=== PATIENT | male | born 1990 | race Two or more races ===

== ENCOUNTER 2025-02-16 13:07 | Outpatient (RCR) | payer MEDICAID, SELFPAY | END 2025-02-27 23:59 | disposition home or self-care (01) | LOC: CPTX 13:07 | PROVIDERS: PCP Student in an Organized Health Care Education/Training Program; Referring Provider Student in an Organized Health Care Education/Training Program; Visit Provider Student in an Organized Health Care Education/Training Program | DX: Z53.9 Procedure and treatment not carried out, unspecified reason (principal) ==

== ENCOUNTER 2025-03-24 14:30 | Outpatient (RCR) | payer MEDICAID, SELFPAY ==
--- NOTE | 2025-03-08 16:09 | PTNOTE_ITS ---
PT OP Initial Eval Patient Information Visit Reasons: BILATERAL KNEE,HIP AND SHOULDER PAIN Medical Diagnosis: Right Shoulder Pain; Right Hip Pain; Right Knee Pain Treatment Dx #1: Right UE Pain Treatment Dx #2: Right LE Pain Start of Care: 03/08/25 Date of Onset: 2 years ago Smoking Status Smoking Status: Never smoker Initial Assessment Subjective: Pt is a 34 y/o male reports of chronic right UE and LE pain (8/10) worsening. Pt has limitation with overhead motions, chores, walking, standing, balance, and performing recreational activities. Objective: Right Shoulder AROM: all motions are WFL with pain in all ranges Right Knee AROM: all motions are WFL with end range pain Right Hip AROM: all motions are WFL with end range pain Right UE MMTs: grossly 3+/5 Right LE MMTs: grossly 3+/5 Assessment: Pt demonstrate right UE and LE pain leading to difficulty with ADLs. Pt will attempt physical therapy if pain persist Pt will be refer back to provider for further consultation Short Term and Retirement Goals 1) Increase right shoulder MMTs grossly to 4-/5 in 6 wks to be able to perform overhead motions 2) Increase right LE MMTs grossly to 4-/5 in 6 wks to be able to walk more than 30 mins 3) Decrease UE and LE pain to 3/10 in 6 wks to be able to perform recreational activities 4) Indep with HEP Treatment Plan 1) Manual Therapy 2) Therapeutic Activities 3) Therapeutic Exercises 4) Modalities (ice, heat) 5) Balance Training 6) Gait Training Frequency and Duration: 2 x wk for 6 wks Certification Dates: 03/08/25 to 06/08/25 Procedure Charges OP PT Eval Mod Complex 30 minutes: Yes
--- NOTE | 2025-03-15 15:06 | PT.ODAYNRPT ---
PT Outpatient Daily Note OP Daily Note Outpatient Physical Therapy Treatment Date: 03/15/25 Visit Reasons: BILATERAL KNEE,HIP AND SHOULDER PAIN Subjective: Pt's right arm and legs continues to hurt. Pt further reports of back pain that causing sciatica. Pt spoke to provider and wants him to complete right side first prior to heading to the left side. Objective: Please see flow chart for list of ther ex performed Assessment: patient frequently needs confirmation from therapist to ensure exercise form. Pt tolerate all exercises instructed today Plan: Continue with PT Length of Time (minutes) of Treatment: 30 Minutes Procedure Charges Therapeutic Exercise 30 minutes: Yes
--- NOTE | 2025-03-17 16:28 | PT.ODAYNRPT ---
PT Outpatient Daily Note OP Daily Note Outpatient Physical Therapy Treatment Date: 03/17/25 Visit Reasons: BILATERAL KNEE,HIP AND SHOULDER PAIN Subjective: Pt reports pain in both legs and arms. Objective: Please see flow sheet for ther ex list. Assessment: Pt able to complete interventios assigned. Plan: Continue with pOC. Length of Time (minutes) of Treatment: 30 Minutes Procedure Charges Therapeutic Exercise 30 minutes: Yes
--- NOTE | 2025-03-22 15:41 | PT.ODAYNRPT ---
PT Outpatient Daily Note OP Daily Note Outpatient Physical Therapy Treatment Date: 03/22/25 Visit Reasons: BILATERAL KNEE,HIP AND SHOULDER PAIN Subjective: Pt reports his legs are hurting today more than usual. Pt mentioned he spends most of his time sitting in his electric wheelchair when at the senior living. Pt shared that he does not think he can walk much, said he needs to be in his chair. Objective: Please see flow sheet for ther ex list. Assessment: Pt demonstrates poor tolerance with closed chain interventions. Plan: Continue with pOC. Length of Time (minutes) of Treatment: 30 Minutes Procedure Charges Therapeutic Exercise 30 minutes: Yes
--- NOTE | 2025-03-24 16:15 | PT.ODAYNRPT ---
PT Outpatient Daily Note OP Daily Note Outpatient Physical Therapy Treatment Date: 03/24/25 Visit Reasons: BILATERAL KNEE,HIP AND SHOULDER PAIN Subjective: Pt reports today is a better day, less pain than last time he was here at PT. Objective: Please see flow sheet for ther ex list. Assessment: Pt demonstrates increase endurance with interventions assigned. Plan: Continue with pOC. Length of Time (minutes) of Treatment: 30 Minutes Procedure Charges Therapeutic Exercise 30 minutes: Yes
== END 2025-03-29 23:59 | disposition home or self-care (01) ==
LOC: CPTX 14:30
PROVIDERS: PCP Student in an Organized Health Care Education/Training Program; Referring Provider Student in an Organized Health Care Education/Training Program; Visit Provider Student in an Organized Health Care Education/Training Program
DX: M25.511 Pain in right shoulder (principal); M25.551 Pain in right hip; M25.561 Pain in right knee; G89.29 Other chronic pain
CPT/HCPCS: 97110; 97162

== ENCOUNTER 2025-04-28 14:30 | Outpatient (RCR) | payer MEDICAID, SELFPAY ==
--- NOTE | 2025-03-31 15:41 | PT.ODAYNRPT ---
PT Outpatient Daily Note OP Daily Note Outpatient Physical Therapy Treatment Date: 03/31/25 Visit Reasons: bilateral knee, hip and shoulder pain Subjective: Pt reports his legs and upper body are hurting today. Mentioned he has tears in shoulders and collar bones. Pt also shared that his condition requires surgery. Pt reported again that he sits in his electric wheel chair for ~15 hours a day, currently receiving accommodations for showers because he can not be on his feet for prolonged periods and avoids walking when at the nursing home because he does not want to loose his accommodations. Objective: Please see flow sheet for ther ex list. Assessment: Pt presents in clinic with B LE edema and redness. Pt encouraged to ambulate more and to try to stay off the w/c to help improve LE circulation and would help improving overall funciotn. Pt shared due to his current situation and staying at a nursing home he tries to avoid getting seeing ambulating for prolonged periods to not loose his accommodations. Pt instructed on interventions he can perform while sitting in his electric wheel chair and encouraged to ambulate when he can. Plan: Continue with POC. Length of Time (minutes) of Treatment: 30 Minutes Procedure Charges Therapeutic Exercise 30 minutes: Yes
--- NOTE | 2025-04-05 14:44 | PT.ODAYNRPT ---
PT Outpatient Daily Note OP Daily Note Outpatient Physical Therapy Treatment Date: 04/05/25 Visit Reasons: bilateral knee, hip and shoulder pain Subjective: Pt came in using electric scooter chair. Objective: Please see flow sheet for ther ex list. Assessment: Progressing closes chain interventions. pt encouraged to increase ambulation as tolerate for HEP to maximize rehab potential. Plan: Continue with POC. Length of Time (minutes) of Treatment: 30 Minutes Procedure Charges Therapeutic Exercise 30 minutes: Yes
--- NOTE | 2025-04-07 15:28 | PT.ODAYNRPT ---
PT Outpatient Daily Note OP Daily Note Outpatient Physical Therapy Treatment Date: 04/07/25 Visit Reasons: bilateral knee, hip and shoulder pain Subjective: Pt reports he feels good today, pt shared [facility] and when out running errands such as going to the library. Pt mentioned now that he is going to the library he can try walking more to get out of his chair, when he is in the [place] he avoid walking because he does not want to be seeing being able to walk and loose 30 minute shower privileges. Objective: Please see flow sheet for ther ex list. Assessment: Pt ambulating in clinic today, no AD decrease limp compared to previous session. Pt mentioned that he is mostly in his chair, this pt encouraged pt to get out of chair when possible to maximise rehab potential and work toward meeting rehab goals. Plan: Continue with pOC. Length of Time (minutes) of Treatment: 30 Minutes Procedure Charges Therapeutic Exercise 30 minutes: Yes
--- NOTE | 2025-04-15 16:35 | PT.ODAYNRPT ---
PT Outpatient Daily Note OP Daily Note Outpatient Physical Therapy Treatment Date: 04/15/25 Visit Reasons: bilateral knee, hip and shoulder pain Subjective: Pt reports he is doing a little better today. Objective: Please see flow sheet for ther ex list. Assessment: Working toward progressing interventions to focus on restoring strength and overall function. Pt encouraged to perform HEP and to ambulate when he can safely. Plan: Continue with pOC. Length of Time (minutes) of Treatment: 30 Minutes Procedure Charges Therapeutic Exercise 30 minutes: Yes
--- NOTE | 2025-04-26 15:59 | PT.ODAYNRPT ---
PT Outpatient Daily Note OP Daily Note Outpatient Physical Therapy Treatment Date: 04/26/25 Visit Reasons: bilateral knee, hip and shoulder pain Subjective: Pt will be seeing equipment application specialist tomorrow for his hips and knees. Pt continues to have back pain but has been able to walk short distance. Pt [facility]. Objective: Please see flow chart for list of ther ex performed Assessment: improvement with overall mobility and patient showed he's able to ambulate in therapy short distance. Pt further demonstrate improved overall endurance and require less rest breaks Plan: Continue with PT Length of Time (minutes) of Treatment: 30 Minutes Procedure Charges Therapeutic Exercise 30 minutes: Yes
--- NOTE | 2025-04-28 15:50 | PT.ODAYNRPT ---
PT Outpatient Daily Note OP Daily Note Outpatient Physical Therapy Treatment Date: 04/28/25 Visit Reasons: bilateral knee, hip and shoulder pain Subjective: Pt's been able to stand longer, however, continues to experience pain in the legs and arms. Pt mentioned he seen a surgeon in [place] and recommends hip MRI. According to patient surgeon is not too concern about his knees. Objective: Please see flow chart for list of ther ex performed Assessment: improved standing tolerance and able to complete more closed chain exercises with less rest break. Advance patient from TG squat to wall mini squat with good tolerance, however, able to complete 10 reps only Plan: Continue with PT Length of Time (minutes) of Treatment: 30 Minutes Procedure Charges Therapeutic Exercise 30 minutes: Yes
== END 2025-04-29 23:59 | disposition home or self-care (01) ==
LOC: CPTX 14:30
PROVIDERS: PCP Student in an Organized Health Care Education/Training Program; Referring Provider Student in an Organized Health Care Education/Training Program; Visit Provider Student in an Organized Health Care Education/Training Program
DX: M25.511 Pain in right shoulder (principal); M25.551 Pain in right hip; M25.561 Pain in right knee; R26.2 Difficulty in walking, not elsewhere classified; R26.89 Other abnormalities of gait and mobility; G89.29 Other chronic pain
CPT/HCPCS: 97110

== ENCOUNTER 2025-05-05 14:30 | Outpatient (RCR) | payer MEDICAID, SELFPAY ==
--- NOTE | 2025-05-05 15:23 | PT.ODS1RPT ---
PT OP Progress/Discharge Note Date of Service: 05/05/25 Progress Note/DC Note Progress Note/Discharge Note: DC Note Patient Information Visit Reasons: bilateral knee,hip shoulder pain Medical Diagnosis: Right Shoulder Pain; Right Hip Pain; Right Knee Pain Treatment Dx #1: Right UE Pain Treatment Dx #2: Right LE Pain Service Discharge Date: 05/05/25 Status Subjective: Pt's right leg and arm pain is about the same but has been moving better since starting physical therapy. Pt mentioned he's currently living [facility] a homeless [facility] where he is mostly in his power w/c. Since physical therapy Pt has been able to sit, stand, walk, and perform chores, and self care activities with less limitation. Pt wants to follow up with PCP for possibly more therapy on his left arm and leg. Pt has recently seen a surgeon which ordered hip MRI. Objective: Right Shoulder AROM: all motions are WNL Right Knee AROM: all motions are WNL Right Hip AROM: all motions are WNL Right UE MMTs: grossly 4-/5 Right LE MMTs: grossly 4-/5 Assessment: Pt demonstrate functional right UE and LE mobility/strength allowing her to resume ADLs with less limitation. Pt's overall pain has not change since starting physical therapy but overall mobility on the right side has improved. Pt will no longer benefit from physical therapy due to plateau towards goals. Pt was instructed on HEP last session and educated to continue exercises to maintain overall mobility. Pt performed all exercises safely, thank you for your referrals. Plan: D/C home with HEP and follow up with MD SALMERON Procedure Charges Therapeutic Exercise 30 minutes: Yes
== END 2025-05-30 23:59 | disposition home or self-care (01) ==
LOC: CPTX 14:30
PROVIDERS: PCP Student in an Organized Health Care Education/Training Program; Referring Provider Student in an Organized Health Care Education/Training Program; Visit Provider Student in an Organized Health Care Education/Training Program
DX: M25.511 Pain in right shoulder (principal); M25.561 Pain in right knee; M25.551 Pain in right hip; R26.2 Difficulty in walking, not elsewhere classified; R26.89 Other abnormalities of gait and mobility; G89.29 Other chronic pain
CPT/HCPCS: 97110

== ENCOUNTER 2025-06-23 07:53 | Outpatient (RCR) | payer MEDICAID, SELFPAY ==
--- NOTE | 2025-06-23 08:51 | PT.OIERPT ---
PT OP Initial Eval Patient Information Outpatient Physical Therapy Treatment Date: 06/23/25 Visit Reasons: Pain in rt shoulder/rt hip Medical Diagnosis: M25.511 Treatment Dx #1: Right Shoulder Pain Start of Care: 06/23/25 Date of Onset: 1 year ago Smoking Status Smoking Status: Never smoker Initial Assessment Subjective: Pt is a 34 y/o male reports of chronic right shoulder and clavicle pain (04/08) ~ 1 year ago. Pt mentioned he feels there is partial tears in the shoulder. Pt denies of past trauma or injury. No imaging has been done thus far. Pt has limitation with overhead motions, lifting, chores, self care, work duties, and performing recreational activities. Pt use a scooter intermittently due to hip, knees, and back pain. Last bout of physical therapy did not help too much. Objective: Right Shoulder PROM: all motions are WNL Right Shoulder AROM Flexion: 150 deg Abduction: 145 deg External Rotation: 80 deg Internal Rotation: 70 deg Right Shoulder MMTs: grossly 3/5 Right Scapula MMTs: grossly 3/5 Special Test (-) neer's (-) (-) brandon-roshan (-) speed's Assessment: Pt demonstrate right shoulder pain with mobility deficits leading to difficulty with ADLs. Pt will attempt physical therapy if pain persist Pt will be refer back to provider for further consultation Short Term and Assisted Goals 1) Increase right shoulder AROM WNL in 6 wks to be able to perform overhead motions 2) Decrease shoulder pain to 2/10 in 6 wks to be able to perform self care activities 3) Increase right shoulder MMTs grossly 4/5 in 6 wks to be able to perform recreational activities 4) Increase right scapula MMTs grossly to 3+/5 in 6 wks to be able to perform recreational activities 5) Indep with HEP Treatment Plan 1) Manual Therapy 2) Therapeutic Activities 3) Therapeutic Exercises 4) Modalities (ice, heat) Frequency and Duration: 2 x wk for 6 wks Certification Dates: 06/23/25 to 09/22/25 Procedure Charges OP PT Eval Mod Complex 30 minutes: Yes
== END 2025-06-29 23:59 | disposition home or self-care (01) ==
LOC: CPTX 07:53
PROVIDERS: PCP Student in an Organized Health Care Education/Training Program; Referring Provider Student in an Organized Health Care Education/Training Program; Visit Provider Student in an Organized Health Care Education/Training Program
DX: M25.511 Pain in right shoulder (principal); G89.29 Other chronic pain
CPT/HCPCS: 97162

== ENCOUNTER 2025-07-30 09:00 | Outpatient (RCR) | payer MEDICAID, SELFPAY ==
--- NOTE | 2025-07-05 09:54 | PT.ODAYNRPT ---
PT Outpatient Daily Note OP Daily Note Outpatient Physical Therapy Treatment Date: 07/05/25 Visit Reasons: Pain in RT shoulder/RT hip Subjective: Pt's clavicle continues to hurt along with the shoulder. Objective: Please see flow chart for list of ther ex performed Assessment: tolerate exercises; pain towards end range in all plane. Pt tool frequent rest breaks due to fatigue Plan: Continue with PT Length of Time (minutes) of Treatment: 30 Minutes Procedure Charges Therapeutic Exercise 30 minutes: Yes
--- NOTE | 2025-07-07 09:28 | PT.ODAYNRPT ---
PT Outpatient Daily Note OP Daily Note Outpatient Physical Therapy Treatment Date: 07/07/25 Visit Reasons: Pain in RT shoulder/RT hip Subjective: Pt's shoulder is much better. Pt still feels tightness and some pain in the clavicle with OH movement. Objective: Please see flow chart for list of ther ex performed Assessment: tolerate exercises with minimal pain; added PNF diagonal pattern frequent cues to correct form Plan: Continue with PT Length of Time (minutes) of Treatment: 30 Minutes Procedure Charges Therapeutic Exercise 30 minutes: Yes
--- NOTE | 2025-07-28 09:40 | PT.ODAYNRPT ---
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 Pt continues to feel that he has torn tendon/ligaments in the shoulder. Pt wants to attempt a few more sessions prior to decide if he wants to continue physical therapy. Objective: Please see flow chart for list of ther ex performed Assessment: demonstrate functional right shoulder AROM, however, continues to report of pain in the AC joint region with all exercises. Pt advised to attempt a few more sessions and if pain is persistent patient will be refer back to provider Plan: Continue with PT Length of Time (minutes) of Treatment: 30 Minutes Procedure Charges Therapeutic Exercise 30 minutes: Yes
--- NOTE | 2025-07-30 09:43 | PT.ODAYNRPT ---
PT Outpatient Daily Note OP Daily Note Outpatient Physical Therapy Treatment Date: 07/30/25 Visit Reasons: Pain in RT shoulder/RT hip Subjective: Pt truly feels there's something torn in the right shoulder and now believe the scapula is involved after goggling some information. Pt continues to have pain and has difficulty maneuvering his w/c. Pt wants to do one more week of PT and will decide if he wants to continue or discontinue Objective: Please see flow chart for list of ther ex performed Assessment: perform exercises with pain, however, able to complete instructed reps. Pt pace throughout PT session to decrease shoulder pain intensity Plan: Continue with PT Length of Time (minutes) of Treatment: 30 Minutes Procedure Charges Therapeutic Exercise 30 minutes: Yes
== END 2025-07-30 23:59 | disposition home or self-care (01) ==
LOC: CPTX 09:00
PROVIDERS: PCP Student in an Organized Health Care Education/Training Program; Referring Provider Student in an Organized Health Care Education/Training Program; Visit Provider Student in an Organized Health Care Education/Training Program
DX: M25.511 Pain in right shoulder (principal); M25.561 Pain in right knee; M25.551 Pain in right hip; R26.2 Difficulty in walking, not elsewhere classified; R26.89 Other abnormalities of gait and mobility; G89.29 Other chronic pain
CPT/HCPCS: 97110

== ENCOUNTER 2025-08-06 08:30 | Outpatient (RCR) | payer MEDICAID, SELFPAY ==
--- NOTE | 2025-08-04 09:38 | PT.ODAYNRPT ---
PT Outpatient Daily Note OP Daily Note Outpatient Physical Therapy Treatment Date: 08/04/25 Visit Reasons: RIGHT HIP/SHOULDER PAIN Subjective: Pt reports R shoulder is stiff and painful. Objective: Please see flow sheet for ther ex list. Assessment: Interventions completed with rest breaks in between reps and exercises due to c/o muscle fatigue. Plan: Continue with pOC. Length of Time (minutes) of Treatment: 30 Minutes Procedure Charges Therapeutic Exercise 30 minutes: Yes
--- NOTE | 2025-08-06 12:48 | PT.ODS1RPT ---
PT OP Progress/Discharge Note Date of Service: 08/06/25 Progress Note/DC Note Progress Note/Discharge Note: DC Note Patient Information Visit Reasons: RIGHT HIP/SHOULDER PAIN Medical Diagnosis: M25.511 Treatment Dx #1: Right Shoulder Pain Service Discharge Date: 08/06/25 Status Subjective: Pt's shoulder feels about the same. Pt continues to feel that there's a tear in the clavicle ligaments. Due to pain Pt is still limited with overhead motions, lifting, chores, self care, and work duties. Pt has a follow up appt with PCP in a few weeks and will consult with MD. Objective: Right Shoulder AROM: all motions are WFL Right Shoulder MMTs: grossly 3+/5 Right Scapula MMTs: grossly 3+/5 Special Test (-) neer's (-) hawkin-roshan (-) speed's Assessment: Pt demonstrate functional right shoulder mobility and strength, however, no change in pain leading to difficulty with ADLs. Pt will no longer benefit from physical therapy due to plateau towards goals. Pt advised to follow up with PCP for further consultation since patient continue to have pain; thank you for your referrals. Plan: D/C home with and follow up with PRN Procedure Charges Therapeutic Exercise 30 minutes: Yes
== END 2025-08-29 23:59 | disposition home or self-care (01) ==
LOC: CPTX 08:30
PROVIDERS: PCP Student in an Organized Health Care Education/Training Program; Referring Provider Student in an Organized Health Care Education/Training Program; Visit Provider Student in an Organized Health Care Education/Training Program
DX: M25.511 Pain in right shoulder (principal); G89.29 Other chronic pain
CPT/HCPCS: 97110